=== PATIENT | female | born 1985 | race Caucasian/White ===

== ENCOUNTER 2023-11-13 03:16 | Observation (INO) | payer OTHER, SELFPAY ==
[2023-11-12 20:47] VITALS: BP 159/100
[2023-11-12 21:56] VITALS: BP 172/101
[2023-11-12 22:19] LABS: Hematocrit 35.3 % (37.0-47.0); Hemoglobin 12.6 g/dL (12.0-16.0); Mean Corp Hgb Conc. 35.7 g/dL (33.0-37.0); Mean Corpuscular Hgb 30.5 pg (27.0-31.0); Mean Corpuscular Volume 85.5 fL (81.0-99.0); Mean Platelet Volume 8.8 fL (7.4-10.4); Platelet Count 439 10^3/uL (130-400); Red Blood Cell Count 4.13 10^6/uL (4.20-5.40); Red Cell Dist. Width 13.7 % (11.5-14.5); White Blood Cell Count 12.6 10^3/uL (4.8-10.8)
[2023-11-12 22:20] LABS: Urine Albumin Trace (Neg - Trace); Urine Bilirubin 1+ (Negative); Urine Character Clear (Clear); Urine Color Yellow; Urine Glucose Negative (Negative); Urine Ketone 3+ (Negative); Urine Leukocyte Trace (Negative); Urine Nitrite Negative (Negative); Urine Occult Blood Negative (Negative); Urine Urobilinogen 1+ (Neg - 1+)
[2023-11-12 22:30] VITALS: BP 161/90
[2023-11-12 22:31] LABS: Blood Urea Nitrogen 14 mg/dl (7-17); Glucose 97 mg/dl (70-99)
[2023-11-12 22:32] LABS: ALT (SGPT) 26 U/L (0-35); AST (SGOT) 27 U/L (14-36); Albumin 3.6 g/dl (3.5-5.0); Alkaline Phosphatase 112 U/L (38-126); Calcium 9.2 mg/dl (8.4-10.2); Carbon Dioxide 23 mmol/L (22-30); Chloride 102 mmol/L (98-107); Potassium 3.7 mmol/L (3.5-5.1); Sodium 131 mmol/L (135-145); Total Bilirubin 0.7 mg/dl (0.2-1.3); Total Protein 6.8 g/dl (6.3-8.2); eGFR > 60.00
[2023-11-12 22:34] LABS: Urine Red Blood Cell None Seen /HPF (0-2); Urine Squamous Cell 0-2 /LPF (Few); Urine White Cell 0-2 /HPF (0-5)
[2023-11-12 23:00] VITALS: BP 154/91
[2023-11-12 23:30] VITALS: BP 175/103
--- NOTE | 2023-11-12 23:42 | ED.GENMED ---
History of Present Illness
General
Chief Complaint: Abdominal Symptoms
Source: patient and spouse
Exam Limitations: none
Time Seen by Provider: 11/12/23 22:24
Nursing documentation reviewed up to this point in time: agreed with
Travel History
Have you had any contact with someone who has COVID-19?: No
Do you have any symptoms of coronavirus? Fever > 100 degrees, chills, cough, shortness of breath, sore throat, loss of taste or smell, muscle aches, or headache?: No
History of Present Illness
History of Present Illness:
38-year-old female with past medical history of polysubstance use on chronic methadone who is currently reportedly 5 months (she says she has not yet had an ultrasound) presents to the emergency department for evaluation of nausea and
vomiting. Patient reports that she has chronic issues with nausea but during this it has been much worse. Over the past 5 days she has had significant worsening of her vomiting�she says she has been vomiting essentially all day and has
not been able to tolerate anything by mouth. She came to the emergency room because symptoms do not seem to be improving. She had previous prescription for Zofran for chronic nausea which she had been using but she says she is out of this medicine
and has nothing to take at home. She denies any significant abdominal pain�she says some slight epigastric discomfort but no lower abdominal pain. She denies any vaginal bleeding or discharge/leakage of fluids. No change in her bowel movements.
She says she has a very mild headache and has some mild dizziness. She has not noticed any fevers or chills. She denies any chest pain or shortness of breath. She has not had any other symptoms. She says that she initially saw her last on this
[facility] for this but never had an ultrasound she says; she says that she was working to transition her care over to [facility] but has not yet seen an OB there and does not have an appointment there for another 9 days.
Past History
Past History
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
ED Past Surgical History: Gynecological (D&C)
Social History
Tobacco: Smoker
Alcohol: None
Drug: Former user
Personal:
Living: with family
Employment: Not employed
Family History
Family History: Other (Noncontributory)
Review of Systems
Review of Systems
All Other Systems: ROS reviewed and negative except as documented in HPI and ROS
Constitutional: Denies fever or chills
EENT: Denies sore throat
Respiratory: Denies cough or trouble breathing
Cardiac: Denies chest pain or palpitations
ABD/GI: Reports abdominal pain, nausea and vomiting; Denies diarrhea or constipated
: Denies dysuria, frequency or flank pain
Musculoskeletal: Denies neck pain or back pain
Neurological: Denies headache, weakness or numbness
Phy Exam
Physical Exam
Physical Exam:
General: Awake, alert, oriented x3; vomiting into emesis bag
Head: Normocephalic, atraumatic
Eyes: Conjunctiva normal, EOMI, pupils equal round reactive to light bilateral
Throat: Airway intact, dry mucous membranes
Neck: Trachea midline, supple without meningismus
Lungs: Clear to auscultation bilaterally, no wheezing, rales, rhonchi
Heart: Tachycardia with regular rhythm, no murmurs, gallops, or rubs
Abd: Soft, appropriate size for gestational age, nontender
Neuro: No gross deficits
Skin: Patient has scabs and track shannon over upper and lower extremities but no signs of acute infection
Extremities: No edema in extremities, warm and well-perfused
Scores
Heart Failure Risk
Heart Failure Risk Score: Not Applicable
Heart Score for Chest Pain Patients
STEMI patient?: Not applicable
Withdrawal Assessment of Alcohol
Withdrawal Assessment Completed?: Not applicable
Course
Orders/Labs/Results
Orders:
Orders
05/01/24 22:10
Complete Blood Count/No Diff Urgent
Comprehensive Metabolic Panel Urgent
Protein/Creat Ratio (Random) Urgent
Date Specimen was Collected: 11/12/23
Time Specimen was Collected: 21:59
Comment: ADDED
Urinalysis Urgent
Date Specimen was Collected: 11/12/23
Time Specimen was Collected: 21:59
Urine Microscopic Urgent
Date Specimen was Collected: 11/12/23
Time Specimen was Collected: 21:59
11/12/23 23:37
Labetalol HCl [Trandate] 20 mg IV NOW STA
11/12/23 23:38
US 2nd/3rd Trimester Urgent
Comment:
Reason For Exam: abd pain,
11/12/23 23:39
0.9% Sodium Chloride 1000 ml [Nss] 1,000 ml IV BOLUS
Ondansetron Injectable [Zofran] 4 mg IV NOW STA
11/12/23 23:40
Electrocardiogram (*1) Urgent
Reason for Study: QTc Monitoring
EKG- Treatment ONCE
Urine Protein/Creat Ratio (Random) [Protein/Creat Ratio (Random)] Urgent
11/13/23 00:44
Add On- LAB Urgent
Tests Added?: urine protein/ creat ratio random
11/13/23 02:10
MRSA Screen Routine
TIMUR Source: Nose
Specimen Description:
11/13/23 05:00
Methadone HCl [Methadone 100 mg/10 ml] 120 mg PO DAILY@0500
11/13/23 08:00
dexmethylphenidate 20 mg PO DAILY
11/13/23 11:30
Methadone HCl [Methadone 100 mg/10 ml] 125 mg PO DAILY@1130
Abnormal Lab Results
11/12/23
22:10
WBC 12.6 H 10^3/uL
(4.8-10.8)
RBC 4.13 L 10^6/uL
(4.20-5.40)
Hct 35.3 L %
(37.0-47.0)
Plt Count 439 H 10^3/uL
(130-400)
Sodium 131 L mmol/L
(135-145)
Creatinine 0.4 L mg/dL
(0.6-1.0)
Urine Ketones 3+ A
(Negative)
Urine Bilirubin 1+ A
(Negative)
Ur Leukocyte Esterase Trace A
(Negative)
11/12/23 22:10
11/12/23 22:10
Vital Signs
Initial and Last Documented VS:
Initial Vital Signs
Temp Pulse Resp BP Pulse Ox
37.3 C 122 18 159/100 99
11/12/23 20:47 11/12/23 20:47 11/12/23 20:47 11/12/23 20:47 11/12/23 20:47
Last Documented Vital Signs
Temp Pulse Resp BP Pulse Ox
37.3 C 78 10 132/80 98
11/12/23 20:47 11/13/23 01:45 11/13/23 01:45 11/13/23 01:30 11/13/23 01:45
Procedures
IV Access
Indication: Emergent access required, RN unable to obtain and Physician skill needed
Performed by:: Davey Galindo MD
Site:: left forearm
Gauge:: 18
Ultrasound Guidance: Yes
MDM/Problems Addressed
Differential Diagnosis Includes:
Hyperemesis gravidarum, vertigo, gastritis, gastroenteritis, preeclampsia
MDM/Problems Addressed:
38-year-old female history as documented who is currently 5 months by dates presents to the emergency department with her spouse for evaluation of severe nausea and vomiting over the past few days and inability to tolerate p.o. She is
hypertensive here 159/100, tachycardic; otherwise normal vitals. Exam as above. Plan to place an IV check labs including CBC and CMP, urinalysis. Will treat symptomatically provide IV fluids. Will monitor closely specifically monitor blood
pressure and reassess after the above.
Initial labs reviewed: CBC shows slight leukocytosis of 12.6, CMP no clinically significant abnormalities. Urinalysis with trace protein. Clinical reassessment patient has remained hypertensive for about 2 hours here in the emergency room with a
peak blood pressure of 172/101. Concern with her complaints, consistent hypertension and proteinuria at reportedly 20 weeks that this could represent preeclampsia; discussed with SAFETY CONSULTANT as patient has not had ultrasound yet and dates somewhat
unclear will send for an OB ultrasound to both assess for wellbeing as well as to better clarify gestational age. Will send a urine protein creatinine ratio. Will treat with antihypertensive. Continue to monitor and reassess after the above.
Ultrasound shows estimated gestational age 21 weeks 6 days with heart rate 152. Patient feeling a bit better after Zofran and fluids. After IV labetalol 20 mg x 1 her blood pressure has improved now 132/80. SAFETY CONSULTANT at bedside to assess�will
admit to their service with consult to medicine for management of her methadone.
Chronic conditions affecting care:
*Radiology
Radiology exam reviewed: radiology read reviewed
*Pulse Oximetry
Patient hypoxic: no
*Critical Care Note
Total Time (30-74mins, 75-104mins- exclusive of procedures): Not Applicable
Data Reviewed
Source: patient and records
Patient Management
Discussion with other providers: [employer] (Discussed with SAFETY CONSULTANT)
Escalation/DeEscalation of care consider admission/obs:
Admission indicated
ED Attending Note
-
Portions of this chart may have been created with voice recognition software.� Occasional wrong word or��sound alike� substitutions may have occurred due to the inherent limitations of voice recognition software.
Discharge Plan
Departure
Patient Disposition: Admit
Date of Disposition: 11/13/23
Time of Disposition: 01:41
Admit to doctor: Braydon
Presentation/result/management discussed w/ accepting MD/DO: SAFETY CONSULTANT
Discharge Problem:
Hypertension, Hyperemesis gravidarum
Prescriptions:
No Action
methadone 10 mg/mL Concentrate
120 mg PO DAILY@0500
Patient Comments:
dose confirmation with [facility]
methadone 10 mg/mL Concentrate
125 mg PO DAILY@1130
Patient Comments:
dose confirmation with [facility]
dexmethylphenidate 10 mg Tablet
10 mg PO DAILY@1300
Patient Comments:
05/21/2023, patient filled this medication on 04/27/2023 for 30 tablets according to PDMP.
dexmethylphenidate 20 mg Capsule,Er Biphasic 50-50
20 mg PO DAILY
Patient Comments:
05/21/2023, patient filled this medication on 05/17/2023 for 30 capsules according to PDMP.
mupirocin 2 % Ointment
1 applic topical DAILY Qty: 22 1RF
tizanidine 2 mg Tablet
2 mg PO Q4HPRN PRN (Reason: restlessness,agitation,anxiety) Qty: 20 0RF
clonidine HCl 0.1 mg tablet
0.1 mg PO BID Qty: 10 0RF
ondansetron HCl 4 mg tablet
4 mg PO Q8H PRN (Reason: nausea and vomiting) 4 Days Qty: 10 0RF
doxycycline monohydrate 100 mg capsule
100 mg PO BID Qty: 20 0RF
Referrals:
Arline Maki MD [Family Provider] -
Interventions
Interventions:
*Risk Screen - Suicide Last Done: 11/12/23 22:34
*General Assessment Last Done: 11/12/23 20:47
*Neglect/Abuse Screening Last Done: 11/12/23 22:34
*ED COVID-19 Vaccine History Last Done: 11/12/23 22:34
Discharge Date and Time
Print Language: [place]
[2023-11-12] MEDS: ZOFRAN 4 MG IV (23:49)
[2023-11-12] MEDS: NSS 1000 IV (23:49)
[2023-11-12] MEDS: TRANDATE 20 MG IV (23:49)
[2023-11-13] VITALS (7 sets, daily range): BP systolic 121–148; BP diastolic 64–91; BMI 31.1; BMI 30.5
[2023-11-13 01:24] LABS: Protein/creatinine Ratio 0.1; Urine Protein 16 mg/dl
--- NOTE | 2023-11-13 02:41 | HPS.HSE ---
Family Physician
-
Family Physician: Arline Maki MD
Chief Complaint
-
nausea/vomiting
History of Present Illness
38yo at 20+4wks by LMP (06/22/23) presents to the ER late last night with n/v. She has had n/v this whole and reports she ran out of zofran. Usually sx are controlled by zofran at home, but was not able to get a refill on her med
because she is in the process of switching OB care from [facility] to . Cannot keep anything down for the past several days at home. No sick contacts. No abdominal pain. No diarrhea/constipation.
She has a significant h/o IV drug use, quit about 3 months ago, and was not able to keep down her methadone yesterday afternoon. She has been feeling lately like she needs an increased dose of methadone in the morning. Feels jittery and not well in
the morning due to apparent withdraw sx. Feeling that way now, as well. Overall, the n/v has improved after receiving one dose of IV Zofran in the ER. She has not been able to receive much by way of IV fluids because her IV sites have blown
(difficult vein access due to h/o drug use).
In the ER, noted to have several elevated BPs on presentation, a few in the severe range (175/103 at 2330). Received a single dose of IV Labetalol 20mg, BPs now in the 130s/80s. Denies h/o HTN outside of or in this . Denies HTN or
pre-eclampsia in previous . Denies LARSON, visual sx, or RUQ pain. Denies CP, palpitations or SOB.
has otherwise going well for her, despite the n/v. Denies ctxs, lof or VB. No other complaints.
Medical History
Past Medical History
Past Medical History: Reports Other
Additional Past Medical History:
h/o IV drug use, h/o MRSA infection (hospitalized in ) , ADHD
Past Surgical History: Reports Other
Additional Past Surgical History:
D&E
Social History
Tobacco: Smoker
Alcohol: None
Drug: Former User
Personal:
Living: With Family
Family History
Family History: Hypertension (mother)
Allergies / Home Medications
Allergies reflects when Allergies were last updated in [employer].
Sulfa
Home Medications with original date entered in [employer]
methadone 10 mg/mL oral concentrate 120 mg PO DAILY@0500 opioid use disorder 05/21/22
methadone 10 mg/mL oral concentrate 135 mg PO DAILY@1130 opioid use disorder 05/21/22
dexmethylphenidate 10 mg tablet 10 mg PO DAILY@1300 Neurological Condition 05/21/23
dexmethylphenidate 20 mg capsule,extended release [id number] 20 mg PO DAILY Neurological Condition 05/21/23
mupirocin 2 % topical ointment 1 applic topical DAILY #22 grams 05/25/23
ondansetron HCl 4 mg tablet 4 mg PO Q8H PRN nausea and vomiting 4 days #10 tabs 05/25/23
tizanidine 2 mg tablet 2 mg PO Q4HPRN PRN restlessness,agitation,anxiety #20 tabs 05/25/23
Allergy/Medication List:
methadone 10 mg/mL oral concentrate 120 mg PO DAILY@0500 opioid use disorder 05/21/22
methadone 10 mg/mL oral concentrate 135 mg PO DAILY@1130 opioid use disorder 05/21/22
dexmethylphenidate 20 mg capsule,extended release [id number] 20 mg PO DAILY Neurological Condition 05/21/23
mupirocin 2 % topical ointment 1 applic topical DAILY #22 grams 05/25/23
ondansetron HCl 4 mg tablet 4 mg PO Q8H PRN nausea and vomiting 4 days #10 tabs 05/25/23
Review of Systems
-
History Source: Patient
A 12 point ROS was completed and negative except as noted: Yes
Constitutional: Reports Other (feels jittery)
EENT: Reports No Symptoms
Respiratory: Reports No Symptoms
Cardiac: Reports No Symptoms
Abdomen/GI: Reports Nausea (since beginning of , worse this week) and Vomiting (since beginning of , worse this week)
: Reports No Symptoms
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
Neurological: Reports No Symptoms (Denies LARSON or visual sx)
Endocrine: Reports No Symptoms
Hematologic/Lymphatic: Reports No Symptoms
Psych: Reports Anxiety (feels jittery when methadone starts to wear off, currently feeling this way)
Physical Exam
Vital Signs
Vital Signs
Temp Pulse Resp BP Pulse Ox
99.2 F 78 10 132/80 98
11/12/23 20:47 11/13/23 01:45 11/13/23 01:45 11/13/23 01:30 11/13/23 01:45
Initial BPs in the ER 154-175/90-103-- since receiving the IV Labetalol 20mg x1, BPs 130s/80s
Physical Exam
General: Conversant
HEENT: NormoCephalic
Respiratory: Clear and Non Labored Respirations
Cardiac: S1/S2 and Regular Rhythm
Breast: Deferred by me
GI: Soft, Non Tender, Non Distended and Other (gravid, fundus at U+2cm)
Rectal: Deferred by Provider
Genito-urinary: Deferred by me
Musculoskeletal: No Clubbing, No Cyanosis and No Edema
Skin: Ulcers (chronic necrotic appearing ulcerations at injection sites all over body, no active oozing noted) and Lesions
Neuro: AO x 3, No Motor Deficits, Nonfocal/grossly intact and DTR's Intact & Symmetrical (+2 b/l LE)
Psych: Agitated (slightly agitated/anxious, but cooperative)
Laboratory Results
-
11/12/23 22:10
11/12/23 22:10
Laboratory Results
Total Bilirubin 0.7 mg/dl (0.2-1.3) 11/12/23 22:10
AST 27 U/L (14-36) 11/12/23 22:10
ALT 26 U/L (0-35) 11/12/23 22:10
Alkaline Phosphatase 112 U/L (38-126) 11/12/23 22:10
urine pr:creatinine ration 0.1
Data Reviewed
-
Critical Care Time (in minutes): 60
Ultrasound: Report Reviewed by me (No final report available yet. Prelim report reviewed- OB US: EFW 432gm, 91st percentile c/w 21+6wks, FHR 152), Discussed with Physician and Discussed with Patient
Lab Data: Labs Reviewed by me, Discussed with Physician and Discussed with Patient
Impression/Plan
-
IMPRESSION/PLAN: 38yo at 20+4wks by ?LMP (06/22/23) with:
1) N/v of : exacerbated after running out of Zofran at home this past week. Feeling better in the ER after 1 IV dose of Zofran. Sodium slightly low, but otherwise no electrolyte abnormalities
-ER staff attempting to establish better IV site (difficult due to extensive drug use in the past)-- will then start 1/2 NS at 125ml/hr until tolerating adequate PO
-Reg diet as tolerated, encouraged pt to go slow
-Zofran ODT prn
-Reglan IV prn (can try LA Phenergan if Zofran alone is not providing relief and IV access is not well-established)
2) New HTN in pre-viable , some BPs initially in the severe range: No sx of pre-eclampsia. Pre-e labs wnl. BPs normal after 1 dose of IV Labetalol.
Unsure if pt withdraw sx or active vomiting in the ER contributing to this episode of HTN.
-Do not feel we need to start magnesium infusion at this time.
-Will monitor closely (for approx 24hrs, longer if necessary) and discuss next steps with MFM if pt continues to have spikes in BPs. Patient will need MFM consult regardless, as this is a high risk for multiple reasons.
-consider repeating labs in 12-24hrs if BPs remain elevated
3) Necrotic ulcerations at injection sites/h/o Pseudomonas and MRSA
-Hospitalist consulted. Do not feel systemic abx are needed at this time.
-MRSA swab sent by ER team
4) Ho IV drug use, on Methadone. Sx of acute withdraw.
-Hospitalist managing methadone. Pt given AM dose of Methadone early this morning to help manage withdraw. Pt feels lately that she may need increased Methadone AM dose to help her manage her symptoms-- defer to hospitalist and/or pt's Methadone
clinic.
-Will consider Clonodine (cat C in ) if needed for withdraw sx.
5) High-risk , c/b h/o IV drug use, tobacco dependence, n/v of , AMA, lapse in care, ?Uncertain dates (cannot find US results from earlier in . EGA 20+4wks based on reported LMP, 21+6wks based on today's US,
Fundal height c/w 22wks)
-Pt has NOB appt scheduled with Fadi Orantes (saw [facility] for just 1 visit early in )
-Will need an MFM consult placed-- out-patient vs. in-patient, depending on how she is doing
-will speak to [facility] physician in the morning to see if they can locate this US to confirm dates
Very much appreciate hospitalist assistance in managing this patient.
Roxann Bryson, DO
--- NOTE | 2023-11-13 03:05 | CON.HOSP ---
Family Physician
-
Family Physician: Arline Maki MD
Chief Complaint
-
nausea/vomiting
History of Present Illness
Ms. Tiffanie Olson is a 38 yo woman with hx IVDA on chronic methadone, admission 06/05 for cellulitis/infection /abscesses at injection sites with wounds showing MRSA/Pseudomonas treated with IV Vanc/Cefepime and discharged on doxycycline presents
to the ER with nausea/vomiting in setting of being 4-5 months . Patient states she wasn't able to keep her methadone pills down yesterday. She was hypertensive in the ER and therefore admitted to OB service for further monitoring for
preeclampsia.
Medicine is asked to consult for management of methadone and skin lesions. Patient has diffuse Xylazine - induced skin markings which appear healed and scarred b/l upper extremities but remain necrotic with mild surrounding erythema in some
locations lower extremities. Patient states overall the appearance is improving. She does topical skin care with cleansing and antibiotic ointment at home. No exudate as was noticed prior.
No fevers/chills. No chest pain or shortness of breath. No tremors. She is currently feeling better after interventions in the ER. She vomited both methadone doses from yesterday. No swelling.
Medical History
Past Medical History
Past Medical History: Reports Other (IVDA on chronic methadone, admission 06/05 for cellulitis/infection /abscesses at injection sites with wounds showing MRSA/Pseudomonas)
Past Surgical History: Reports Other
Social History
Tobacco: Smoker
Alcohol: None
Drug: Former User
Allergies / Home Medications
Allergies reflects when Allergies were last updated in [employer].
Home Medications with original date entered in [employer]
Allergy/Medication List:
Allergies
Allergy/AdvReac Type Severity Reaction Status Date / Time
Sulfa (Sulfonamide Allergy Anaphylaxis Verified 05/21/23 16:08
Antibiotics)
Home Medications
methadone 10 mg/mL oral concentrate 120 mg PO DAILY@0500 opioid use disorder 05/21/22
methadone 10 mg/mL oral concentrate 135 mg PO DAILY@1130 opioid use disorder 05/21/22
dexmethylphenidate 10 mg tablet 10 mg PO DAILY@1300 Neurological Condition 05/21/23
dexmethylphenidate 20 mg capsule,extended release [id number] 20 mg PO DAILY Neurological Condition 05/21/23
mupirocin 2 % topical ointment 1 applic topical DAILY #22 grams 05/25/23
ondansetron HCl 4 mg tablet 4 mg PO Q8H PRN nausea and vomiting 4 days #10 tabs 05/25/23
tizanidine 2 mg tablet 2 mg PO Q4HPRN PRN restlessness,agitation,anxiety #20 tabs 05/25/23
Review of Systems
-
History Source: Patient
A 12 point Review of Systems was completed except as noted: Yes
Physical Exam
Vital Signs
Vital Signs
Temp Pulse Resp BP Pulse Ox
99.2 F 73 15 134/76 97
11/12/23 20:47 11/13/23 02:45 11/13/23 02:45 11/13/23 02:00 11/13/23 02:45
Physical Exam
General: No Apparent Distress
HEENT: PERRLA
Respiratory: Clear; Negative Wheezes
Cardiac: S1/S2 and Regular Rhythm
GI: Other ( abdomen)
Musculoskeletal: No Edema
Skin: Other (b/l upper extremities with diffuse scarring from skin excoriations; lower extremities with diffuse necrotic appearing ulcers; some with surrounding erythema, no exudate)
Neuro: AO x 3
Psych: Calm
Laboratory Results
-
Laboratory Results
11/12/23 22:10
11/12/23 22:10
Total Bilirubin 0.7 mg/dl (0.2-1.3) 11/12/23 22:10
AST 27 U/L (14-36) 11/12/23 22:10
ALT 26 U/L (0-35) 11/12/23 22:10
Alkaline Phosphatase 112 U/L (38-126) 11/12/23 22:10
Data Reviewed
-
Diagnostic Radiology: Report Reviewed by Me
Lab Data: Labs Reviewed
Impression / Plan
-
Ms. Tiffanie Olson is a 38 yo woman with hx IVDA on chronic methadone, admission 06/05 for cellulitis/infection /abscesses at injection sites with wounds showing MRSA/Pseudomonas treated with IV Vanc/Cefepime and discharged on doxycycline presents
to the ER with nausea/vomiting in setting of being 4-5 months .
Medicine is asked to consult for management of methadone and skin lesions. Lower extremity skin lesions appear necrotic but not actively infected.
Nausea/Vomiting in
Hypertension in
-received Labetalol in ER with improvement
-patient is admitted to OB service
-plan per OB
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
-per patient report, these are chronic appearing since May and slowly improving
-I do not see need for systemic antibiotics at this time
-will consult wound care
Hx IVDA on Methadone
-patient's Methadone is resumed at RADIOGRAPHY TECHNICIAN dosing
-can consider clonidine which will also help BP if OK with OB
[2023-11-13] MEDS: DOLOPHINE 120 MG PO (03:31)
[2023-11-13] MEDS: 0.45%NACL 1000 IV ×2 (04:27→13:22)
--- NOTE | 2023-11-13 05:13 | PTCARENOTE ---
LDRP called for Doppler heart tone test every 24 hr
--- NOTE | 2023-11-13 07:26 | PTCARENOTE ---
doppler heart tones 135-140's
[2023-11-13] MEDS: ZOFRAN ODT (ORALLY DISINTEGRATING) 4 MG PO ×2 (08:02→16:02)
--- NOTE | 2023-11-13 11:20 | PTCARENOTE ---
pt taken via wheelchair to US at 1040 this AM. pt to be off the floor for 1.5 hrs per Deanna who took pt down. UA still outstanding. this nurse placed hat in toilet and pt is aware we need a sample. IVF going at 125mL/hr. pt given prn oral
zofran this AM for nausea prior to breakfast. pt is a self within the room and 21 weeks .
[2023-11-13] MEDS: METHADONE 100 MG/10 ML 125 MG PO (11:56)
--- NOTE | 2023-11-13 12:45 | WOUNDNOTE ---
L ANKLE/CALF (MEDIAL)
--- NOTE | 2023-11-13 12:45 | WOUNDNOTE ---
R HIP/BUTTOCKS (OUTER)
--- NOTE | 2023-11-13 12:46 | WOUNDNOTE ---
[facility] RN note: Patient admitted with elevated bp, nausea/vomiting. Patient 20weeks . She is .
See H&P for complete history.
PMH: IV drug use quit last May, ADHD, smoker, on Methadone, chronic wounds slowly improving (history of pseudomonas and MRSA, 05/2023 cellulitis/infection, abscess.
Wound Location and type/assessment: Patient admitted with: multiple full thickness to subcutaneous layer or deeper IV drug and skin popping wounds in different stages of wound healing. Some dry eschars, some dry pink, some with yellow slough.
Patient cleanses wounds at home with Hibiclens in the shower; she stated she did confirm with her building construction contractor. She has been covering the open draining wounds with silicone border foam or Band-aids. R lateral thigh blister noted with redness and
tenderness suspect is a developing abscess.
Appetite: good.
Pressure redistribution devices in place: [employer] Accumax. Patient is mobile.
Plan: Open/draining wounds cleansed with saline, and redresses. Agra texted Dr. Precious Bryson re: multiple drug related wounds, area of concern R lateral thigh red tender area, picture included. Asked about warm compresses R lateral thigh area
of concern and local wound care. Await response.
Care plan to be updated and will follow as needed. Suggested to patient she follow up at [facility].
[2023-11-13 13:07] LABS: Protein/creatinine Ratio 0.1; Urine Protein 12 mg/dl
--- NOTE | 2023-11-13 13:46 | W.PN.OBG.DWH ---
Today's Communication / Plan
-
Transfer to [facility] for higher level care due to severe prematurity
Assessment/Plan
-
at 22+ weeks, EFW over 500 g with no care, h/o IVDA/Methadone, and severe range BP-stable. Transfer to [facility] initiated, accepted. Consent signed by patient.
Subjective Data
-
Pt feeling better, taking house diet. denies bleeding, abdominal pain. Had Level 2 U/S earlier-reviewed recommendation of [facility] that pt be transferred to tertiary care as EFW 522 g and dating is in question, therefore, need to presume baby could be
viable, and if pt experience were to experience further sever hypertension, would be at risk for complications that could necessitate delivery. Pt agrees with plan.
Denies any recent drug use. Has appointment to begin care at [facility] in the next week.
Medicine managing wound carer
Objective Data
-
Laboratory Results
11/12/23 22:10
11/12/23 22:10
Vital Signs
Temp Pulse Resp BP Pulse Ox
98.4 F 67 17 126/70 97
11/13/23 07:50 11/13/23 07:50 11/13/23 07:50 11/13/23 07:50 11/13/23 09:20
Abdomen-soft, gravid/nontender, fundus firm and nontender at 2 cm above umbilicus
Extremities-no calf pain, multiple scabs
[2023-11-13 13:55] LABS: Amphetamines Negative (Negative); Barbiturates Negative (Negative); Benzodiazepines Negative (Negative); Buprenorphine Negative (Negative); Cocaine Negative (Negative); Marijuana Negative (Negative); Methadone Positive (Negative); Methamphetamines Negative (Negative); Opiates Negative (Negative); Phencyclidine Negative (Negative); Tricyclic Antidepressants Negative (Negative)
[2023-11-13 14:19] LABS: Fentanyl, Urine Positive (Negative)
[2023-11-13 14:29] LABS: Hepatitis B Surface Antigen Negative (Negative)
--- NOTE | 2023-11-13 14:34 | WOUNDNOTE ---
Forwarded grover text sent to Dr. Bryson to Dr. Crump who saw patient today. Patient is being transferred to [facility] when bed available. Dr. Crump deferred wound care orders to hospitalist. Grover texted Dr. Vega who plans to see
patient. Dr. Vega approved local wound care and warm compresses to R lateral thigh. Updated discharge instructions.
--- NOTE | 2023-11-13 14:34 | CM ---
Reviewed the chart notes and spoke with the patient at the bedside. The patient is admitted under observational status. Observational letter was provided and explained. The patient had no questions with regards to the letter.
The patient resides with her spouse in a two story home with six steps to enter. The patient reports no DME/VN/SNF in the past. The patient confirmed her pharmacy of choice is the [facility]. continues to be available to
patient/family and is monitoring medical plan for needs at discharge.
Plan: Transfer to [facility]/[place] via ambulance.
[2023-11-13 14:39] LABS: HIV Combo Negative (Negative)
[2023-11-13 14:46] LABS: Hepatitis B Surface Antibody Positive; Hepatitis C Antibody Reactive (Negative)
--- NOTE | 2023-11-13 15:57 | PHA.VAN.IN ---
Assessment
- Assessment
Renal Function: Appears similar to baseline
Concomitant Antimicrobials: piperacillin/tazobactam
- Previous Dosing Experience
Previous Regimen: Vanc 750mg Q8H
Date of Regimen: May 2023
Provided Trough of: 13.4
Provided AUC of: 444
Patient's SCR is: Similar to previous dosing experience
Patient's weight is: Similar to previous dosing experience
Regimen provided the following patient-specific PK:
Extrapolated Cmax (mcg/mL): 24.2 (Peak level was drawn: Appropriately)
Extrapolated Cmin (mcg/mL): 13.6 (Trough Drawn: Appropriately)
Levels were drawn: At steady state
Calculated AUC (mcg*h/mL): 444
Calculated ke: 0.0965
Calculated half life (H): 7.2
Calculated Vd (L): 52.39
Calculated Vanc CL (ml/min): 84.22
Patient had IV VIANEY with prior dosing experience but is currently
AUC Dosing Plan
- Dosing Variables
Dosing Weight (kg): 78
Dosing CrCl (ml/min): 123
Vd coefficient (L/kg): 0.7
Due to and history of IV VIANEY, patient unlikely to follow population PK and may require increased dosing
can increase volume of distribution and renal blood flow (Pharmacotherapy 2015;35(11):1052�1062)
Patients with IV VIANEY frequently have concentrations below guideline-based targets (Open Forum Infectious Diseases, Volume 4, Issue suppl_1, Fall 2017, Page J172)
- Empiric Dosing
Initial / Loading Dose: 1250mg - administration pending
Maintenance Regimen: Van 750mg Q8H starting at 2200 in lieu of full loading dose
Estimated AUC (mcg*h/mL): 408
Estimated Peak (mcg*h/mL): 24
Estimated Trough (mcg/ml): 11.4
Estimated Half Life (H): 6.5
Will initiate same dosing as prior experience - patient may require dose adjustments due since prior dosing experience but will follow levels first
- Monitoring
No levels ordered at this time: will consider levels in next 48 hours
Pharmacokinetics Vancomycin I
- -
Patient Age: 38
Patient Sex: Female
Vancomycin Day #: 1
Indication: Skin And Soft Tissue
Requesting Provider: Dr. Vega
Pertinent Antimicrobial Allergies:
sulfonamide antibiotics - anaphylaxis
Height / Weight:
Height 5 ft 3 in
Actual Weight 78.188 kg
Pertinent Past Medical History: BMI ~30.5, IV VIANEY
- Vital Signs / Lab Results
Temp Pulse Resp BP Pulse Ox
97.9 F 64 17 121/64 98
11/13/23 15:41 11/13/23 15:41 11/13/23 15:41 11/13/23 15:41 11/13/23 15:41
Lab Results - Hematology
11/12/23
22:10
WBC 12.6 H
Lab Results - Chemistry
11/12/23
22:10
BUN 14
Creatinine 0.4 L
Albumin 3.6
Lab Results - Urine
11/12/23
22:10
Urine Nitrite Negative
Ur Leukocyte Esterase Trace A
Urine WBC 0-2
Ur Squamous Epith Cells 0-2
[2023-11-13] MEDS: ZOSYN 50 IV (16:02)
[2023-11-13] MEDS: VANCOCIN 275 MG IV (16:32)
--- NOTE | 2023-11-13 16:46 | W.PN.HOSP.TC ---
Today's Communication/Plan
-
Pending transfer.
Assessment / Plan
Assessment / Plan
Impression/plan:
Presented with nausea and vomiting in
Improved with addition of antiemetics/Zofran.
Hypertension upon admission.
No prior history of hypertension including hypertensive .
? If component of withdrawal while patient was not able to ingest her methadone.
Treated with single dose of labetalol and currently normotensive.
No clinical or laboratory evidence of preeclampsia.
Plan is for further maternal monitoring at the tertiary care center pending transfer.
IVDA with chronic opiate use disorder on methadone
Xylazine induced skin ulcerations with necrosis
Wound care appreciated
Right thigh necrotic wound with erythema and induration/surrounding cellulitis
No fluctuance on exam.
Prior history of MRSA and pseudomonal.
Will start vancomycin and Zosyn.
Site needs to be monitored closely for further development as patient may require surgical debridement
Anticipated Discharge: Within 24 hours
Subjective/Interval History
-
Date of Service: November 13, 2023
Objective Data
-
Vital Signs:
Vital Signs
Temp Pulse Resp BP Pulse Ox
97.9 F 64 17 121/64 98
11/13/23 15:41 11/13/23 15:41 11/13/23 15:41 11/13/23 15:41 11/13/23 15:41
I&O
11/12/23 11/13/23 11/14/23
06:59 06:59 06:59
Intake Total 1175 / 1175
Balance 1175 / 1175
Physical Exam
-
General: Well Developed and No Apparent Distress
HEENT: Normocephalic, Atraumatic and Moist Mucous Membranes
Respiratory: Clear to Auscultation
Cardiac: Regular Rhythm and S1/S2; Negative Murmur, Rub or Gallop
GI: Soft, Nontender, Nondistended and Normal Bowel Sounds; Negative Organomegaly
Rectal: Deferred by Provider
Musculoskeletal: No Clubbing, No Cyanosis and No Edema
Skin: Negative Rash
Neuro: Nonfocal/Grossly Intact
--- NOTE | 2023-11-13 18:03 | PTCARENOTE ---
report called by this nurse to [employer] labor and delivery at [phone]. pt taken via stretcher to hospital, vitals taken within 4 hour discharge window and Iv site was removed prior to discharge. pt ate dinner and received two PO doses of oral
disintegrating zofran this afternoon. last dose reported to [facility] nurse during report. pt belongings gathered and sent with patient at time of discharge.
[2023-11-13 20:11] LABS: Rubella Positive
[2023-11-14 14:41] LABS: Syphilis/T. pallidum Ab Reflex Negative (Negative)
== END 2023-11-13 17:41 | disposition short-term general hospital (02) ==
LOC: 2 NORTH 03:16
PROVIDERS: Obstetrics & Gynecology; ADMITTING PHYSICIAN Obstetrics & Gynecology; EMERGENCY PHYSICIAN Emergency Medicine; OTHER PHYSICIAN Student in an Organized Health Care Education/Training Program
DX: O21.0 Mild hyperemesis gravidarum (principal); R10.9 Unspecified abdominal pain; F11.20 Opioid dependence, uncomplicated; F17.200 Nicotine dependence, unspecified, uncomplicated; O99.332 Smoking (tobacco) complicating pregnancy, second trimester; O13.2 Gestational [pregnancy-induced] hypertension without significant proteinuria, second trimester; Z3A.21 21 weeks gestation of pregnancy; F90.9 Attention-deficit hyperactivity disorder, unspecified type; O24.112 Pre-existing type 2 diabetes mellitus, in pregnancy, second trimester; O99.342 Other mental disorders complicating pregnancy, second trimester; O99.322 Drug use complicating pregnancy, second trimester; L97.118 Non-pressure chronic ulcer of right thigh with other specified severity; L03.115 Cellulitis of right lower limb; K29.70 Gastritis, unspecified, without bleeding; R42 Dizziness and giddiness; R51.9 Headache, unspecified; O99.612 Diseases of the digestive system complicating pregnancy, second trimester; Z88.2 Allergy status to sulfonamides; Z86.14 Personal history of Methicillin resistant Staphylococcus aureus infection
CPT/HCPCS: 76805; 76811; 80053; 80306; 80307; 81003; 81015; 82570; 84156; 85027; 86706; 86762; 86780; 86803; 86850; 86900; 86901; 87070; 87086; 87340; 87389; 93005; 96361; 96374; 96375; 99285; G0378

== ENCOUNTER 2023-12-23 20:50 | Emergency (ER) | payer OTHER, SELFPAY ==
[2023-12-23 20:57] VITALS: BP 142/98
[2023-12-23 21:57] VITALS: BP 148/90
[2023-12-23] MEDS: ZOFRAN 4 MG IV (22:33)
--- NOTE | 2023-12-23 22:35 | ED.GENMED ---
History of Present Illness
<ANGELO Brown - Last Filed: 12/24/23 04:12>
General
Chief Complaint: Problems
Source: patient and records
Exam Limitations: none
Time Seen by Provider: 12/23/23 21:57
Travel History
Have you had any contact with someone who has COVID-19?: No
Do you have any symptoms of coronavirus? Fever > 100 degrees, chills, cough, shortness of breath, sore throat, loss of taste or smell, muscle aches, or headache?: No
History of Present Illness
History of Present Illness:
38 year old female at 28 weeks gestation A4 with hx of polysubstance abuse on methadone who presents with 2 days of nausea and vomiting. Pt was seen here on 11/12/23 for similar symptoms. at the time she was found to have xylazine induced skin
ulceration with necrosis. Pt was admitted and transferred to [facility] for higher level care due to severe prematurity. She was found to be hypertensive and BP controlled with a dose of labetalol. Today she presents with 2 days of cyclic vomiting.
She took Zofran 4 mg PO today at 1500 without relief of her symptoms. She reports burning epigastric abdominal pain, which she states is due to the constant vomiting. Additionally, she reports high blood pressure today at home at 157/99. She reports
mild head ache. Denies dizziness, vision changes, diarrhea, constipation, fevers/chills, cough, chest pain, SOB. Denies vaginal bleeding or discharge. Reports positive movement. She is followed by OB in [place], last appointment 3 weeks ago
with normal check up. She last used fentanyl via IVDU 1 week ago. Denies other drug use, tobacco or etoh use.
Past History
<ANGELO Brown - Last Filed: 12/24/23 04:12>
Past History
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
ED Past Surgical History: Gynecological (D&C)
Social History
Tobacco: Smoker
Alcohol: None
Drug: Former user
Personal:
Living: with family
Employment: Not employed
Family History
Family History: Other (Noncontributory)
Review of Systems
<Danielcolby Olson [facility] - Last Filed: 12/24/23 04:12>
Review of Systems
Allergies reviewed?: Yes
All Other Systems: ROS reviewed and negative except as documented in HPI and ROS
Constitutional: Reports no symptoms
EENT: Reports no symptoms
Respiratory: Reports no symptoms
Cardiac: Reports no symptoms
ABD/GI: Reports abdominal pain, nausea and vomiting
: Reports no symptoms
Musculoskeletal: Reports no symptoms
Skin: Reports no symptoms
Neurological: Reports no symptoms
Endocrine: Reports no symptoms
Hematologic/Lymphatic: Reports no symptoms
Psychiatric: Reports no symptoms
Phy Exam
<Ama Olson [facility] - Last Filed: 12/24/23 04:12>
General Physical Exam
General Presentation: no apparent distress and other (weak-appearing)
General age: appears stated age
General Skin: warm and dry
General Habitus: normal
General Mental: alert
General Hydration: dry mucous membranes
Cardiovascular Exam
Cardiovascular Exam: regular rate/rhythm, no edema, no gallop, no murmur and normal peripheral pulses
Pulmonary Exam
Pulmonary Exam: lungs clear, no respiratory distress, no rales, no crackles, no rhonchi, no wheezing and no cough
Gastrointestinal Exam
Gastrointestinal Exam: normal bowel sounds, non tender and other (gravid)
Neurological Exam
Neurological Exam: alert, oriented x3, CN II-XII intact, no motor deficits and no sensory deficits
Skin Exam
Skin Exam: normal color, warm/dry and other (multiple scars due to IVDU to the anterior aspect of bilateral upper extremities. No open lesions with active bleeding or discharge. )
Psychiatric Exam
Psychiatric Exam: normal mood/affect
Course
<ANGELO Brown - Last Filed: 12/24/23 04:12>
Orders/Labs/Results
Orders:
Orders
12/23/23 22:09
0.9% Sodium Chloride 1000 ml [Nss] 1,000 ml IV BOLUS
Ondansetron Injectable [Zofran] 4 mg IV NOW STA
12/23/23 22:38
Comprehensive Metabolic Panel Urgent
Magnesium Urgent
12/23/23 22:39
Beta HCG Quantitative Urgent
Is this a screen?: No
Comment: 28 weeks per pt
Complete Blood Count/With Diff Urgent
12/23/23 22:43
Drug Screen, Urine [Urine Drug Abuse Screen] Urgent
Date Specimen was Collected: 12/24/23
Time Specimen was Collected: 00:38
Urinalysis Reflex To Culture Urgent
Date Specimen was Collected: 12/24/23
Time Specimen was Collected: 00:38
12/23/23 23:09
Pantoprazole [Protonix IV] 40 mg IV NOW STA
12/23/23 23:39
0.9% Sodium Chloride 500 ml [Nss] 500 ml IV BOLUS
12/24/23 00:39
Fentanyl, Urine Urgent
Urine Microscopic Reflex Cult Urgent
Urine Culture Urgent
TIMUR Source: U
Specimen Description:
Date Specimen was Collected: 12/24/23
Time Specimen was Collected: 00:38
12/24/23 02:00
Dextrose 5%/0.9%Sodchl 500 ml [D5/0.9% Sodium Chloride] 500 ml IV 150 mls/hr
12/24/23 02:50
Prochlorperazine [Compazine] 10 mg IV NOW STA
12/24/23 02:51
Prochlorperazine [Compazine] 10 mg .ROUTE .STK-MED ONE
12/24/23 04:45
Urinalysis Reflex To Culture Urgent
Date Specimen was Collected: 12/24/23
Time Specimen was Collected: 04:44
Urine Microscopic Reflex Cult Urgent
Urine Culture Urgent
TIMUR Source: U
Specimen Description:
Date Specimen was Collected: 12/24/23
Time Specimen was Collected: 04:44
12/24/23 05:39
Cephalexin Monohydrate [Keflex] 500 mg PO NOW STA
Abnormal Lab Results
12/23/23 12/23/23 12/24/23
22:38 22:39 00:39
WBC 15.8 H 10^3/uL
(4.8-10.8)
Hct 35.5 L %
(37.0-47.0)
Plt Count 614 H 10^3/uL
(130-400)
Abs Immat Gran (auto) 0.1 H 10^3/uL
(0-0.05)
Absolute Neuts (auto) 12.9 H 10^3/uL
(1.4-6.5)
Absolute Monos (auto) 0.8 H 10^3/uL
(0.1-0.6)
Neutrophils % 81.6 H %
(42.2-75.2)
Lymphocytes % 13.0 L %
(20.5-51.1)
Sodium 131 L mmol/L
(135-145)
Chloride 88 L mmol/L
(98-107)
Carbon Dioxide 33 H mmol/L
(22-30)
BUN 19 H mg/dl
(7-17)
Creatinine 0.5 L mg/dL
(0.6-1.0)
Alkaline Phosphatase 152 H U/L
(38-126)
Urine Ketones 3+ A
(Negative)
Urine Bilirubin 1+ A
(Negative)
Urine Urobilinogen 2+ A
(Neg - 1+)
Leukocyte Esterase Rfl Trace A
(Negative)
Urine WBC (Reflex) 11-15 A /HPF
(0-5)
Urine Bacteria (Reflex) Many A
(Negative)
Urine Methadone Screen Positive H
(Negative)
Urine Fentanyl Screen Positive H
(Negative)
12/24/23
04:45
WBC
Hct
Plt Count
Abs Immat Gran (auto)
Absolute Neuts (auto)
Absolute Monos (auto)
Neutrophils %
Lymphocytes %
Sodium
Chloride
Carbon Dioxide
BUN
Creatinine
Alkaline Phosphatase
Urine Ketones 3+ A
(Negative)
Urine Bilirubin 2+ A
(Negative)
Urine Urobilinogen 2+ A
(Neg - 1+)
Leukocyte Esterase Rfl Trace A
(Negative)
Urine WBC (Reflex) 11-15 A /HPF
(0-5)
Urine Bacteria (Reflex) Many A
(Negative)
Urine Methadone Screen
Urine Fentanyl Screen
12/23/23 22:39
12/23/23 22:38
Vital Signs
Initial and Last Documented VS:
Initial Vital Signs
Temp Pulse Resp BP Pulse Ox
97.9 F 108 18 142/98 96
12/23/23 20:57 12/23/23 20:57 12/23/23 20:57 12/23/23 20:57 12/23/23 20:57
Last Documented Vital Signs
Temp Pulse Resp BP Pulse Ox
97.9 F 84 18 155/92 98
12/23/23 20:57 12/24/23 06:05 12/24/23 06:05 12/24/23 05:48 12/24/23 06:05
Information
Weeks gestation: Weeks: (28)
Location: N/A
<Payam Greenberg MD - Last Filed: 12/26/23 19:07>
Orders/Labs/Results
Orders:
Orders
12/23/23 22:09
0.9% Sodium Chloride 1000 ml [Nss] 1,000 ml IV BOLUS
Ondansetron Injectable [Zofran] 4 mg IV NOW STA
12/23/23 22:38
Comprehensive Metabolic Panel Urgent
Magnesium Urgent
12/23/23 22:39
Beta HCG Quantitative Urgent
Is this a screen?: No
Comment: 28 weeks per pt
Complete Blood Count/With Diff Urgent
12/23/23 22:43
Drug Screen, Urine [Urine Drug Abuse Screen] Urgent
Date Specimen was Collected: 12/24/23
Time Specimen was Collected: 00:38
Urinalysis Reflex To Culture Urgent
Date Specimen was Collected: 12/24/23
Time Specimen was Collected: 00:38
12/23/23 23:09
Pantoprazole [Protonix IV] 40 mg IV NOW STA
12/23/23 23:39
0.9% Sodium Chloride 500 ml [Nss] 500 ml IV BOLUS
12/24/23 00:39
Fentanyl, Urine Urgent
Urine Microscopic Reflex Cult Urgent
Urine Culture Urgent
TIMUR Source: U
Specimen Description:
Date Specimen was Collected: 12/24/23
Time Specimen was Collected: 00:38
12/24/23 02:00
Dextrose 5%/0.9%Sodchl 500 ml [D5/0.9% Sodium Chloride] 500 ml IV 150 mls/hr
12/24/23 02:50
Prochlorperazine [Compazine] 10 mg IV NOW STA
12/24/23 02:51
Prochlorperazine [Compazine] [address] .[facility]-MED ONE
12/24/23 04:45
Urinalysis Reflex To Culture Urgent
Date Specimen was Collected: 12/24/23
Time Specimen was Collected: 04:44
Urine Microscopic Reflex Cult Urgent
Urine Culture Urgent
TIMUR Source: U
Specimen Description:
Date Specimen was Collected: 12/24/23
Time Specimen was Collected: 04:44
12/24/23 05:39
Cephalexin Monohydrate [Keflex] 500 mg PO NOW STA
Abnormal Lab Results
12/23/23 12/23/23 12/24/23
22:38 22:39 00:39
WBC 15.8 H 10^3/uL
(4.8-10.8)
Hct 35.5 L %
(37.0-47.0)
Plt Count 614 H 10^3/uL
(130-400)
Abs Immat Gran (auto) 0.1 H 10^3/uL
(0-0.05)
Absolute Neuts (auto) 12.9 H 10^3/uL
(1.4-6.5)
Absolute Monos (auto) 0.8 H 10^3/uL
(0.1-0.6)
Neutrophils % 81.6 H %
(42.2-75.2)
Lymphocytes % 13.0 L %
(20.5-51.1)
Sodium 131 L mmol/L
(135-145)
Chloride 88 L mmol/L
(98-107)
Carbon Dioxide 33 H mmol/L
(22-30)
BUN 19 H mg/dl
(7-17)
Creatinine 0.5 L mg/dL
(0.6-1.0)
Alkaline Phosphatase 152 H U/L
(38-126)
Urine Ketones 3+ A
(Negative)
Urine Bilirubin 1+ A
(Negative)
Urine Urobilinogen 2+ A
(Neg - 1+)
Leukocyte Esterase Rfl Trace A
(Negative)
Urine WBC (Reflex) 11-15 A /HPF
(0-5)
Urine Bacteria (Reflex) Many A
(Negative)
Urine Methadone Screen Positive H
(Negative)
Urine Fentanyl Screen Positive H
(Negative)
12/24/23
04:45
WBC
Hct
Plt Count
Abs Immat Gran (auto)
Absolute Neuts (auto)
Absolute Monos (auto)
Neutrophils %
Lymphocytes %
Sodium
Chloride
Carbon Dioxide
BUN
Creatinine
Alkaline Phosphatase
Urine Ketones 3+ A
(Negative)
Urine Bilirubin 2+ A
(Negative)
Urine Urobilinogen 2+ A
(Neg - 1+)
Leukocyte Esterase Rfl Trace A
(Negative)
Urine WBC (Reflex) 11-15 A /HPF
(0-5)
Urine Bacteria (Reflex) Many A
(Negative)
Urine Methadone Screen
Urine Fentanyl Screen
12/23/23 22:39
12/23/23 22:38
Vital Signs
Initial and Last Documented VS:
Initial Vital Signs
Temp Pulse Resp BP Pulse Ox
97.9 F 108 18 142/98 96
12/23/23 20:57 12/23/23 20:57 12/23/23 20:57 12/23/23 20:57 12/23/23 20:57
Last Documented Vital Signs
Temp Pulse Resp BP Pulse Ox
97.9 F 84 18 155/92 98
12/23/23 20:57 12/24/23 06:05 12/24/23 06:05 12/24/23 05:48 12/24/23 06:05
<ANGELO Brown - Last Filed: 12/24/23 04:12>
MDM/Problems Addressed
Differential Diagnosis Includes:
hyperemesis gravidarum, preeclampsia, HELLP syndrome
MDM/Problems Addressed:
38 year old female who presents with 2 days of nausea and vomiting.
Chronic conditions affecting care: Other (IVDU)
<ANGELO Brown - Last Filed: 12/24/23 04:12>
*Critical Care Note
Total Time (30-74mins, 75-104mins- exclusive of procedures): Not Applicable
ED Attending Note
<ANGELO Brown - Last Filed: 12/24/23 04:12>
-
Portions of this chart may have been created with voice recognition software.� Occasional wrong word or��sound alike� substitutions may have occurred due to the inherent limitations of voice recognition software.
<Payam Greenberg MD - Last Filed: 12/26/23 19:07>
ED Attending Note
Patient seen and examined by attending physician: Yes
ED Attending Note:
Pt, , who is approximately 28 weeks , presents to ED secondary to persistent nausea and vomiting over the past 2 days. Denies fever or chills. Denies sore throat. Denies coughing. Denies diarrhea. Denies trauma. Denies sore throat.
Denies nasal congestion. Denies headache. Denies dizziness. Patient does admit to having used fentanyl recently. Patient is on chronic methadone treatment. Denies drinking alcohol. Patient was admitted to the hospital 1 month ago for
continual vomiting. Patient has an appointment with her COMPRESSION MOLDING MACHINE TENDER physician at [facility] tomorrow afternoon, at which point an ultrasound will be scheduled. Patient does feel the baby move.
Physical Exam
General: no apparent distress, not acutely ill. afebrile.
Head: nc/at. eomi
Neck: supple. no meningeal signs.
Heart: tachycardic, no murmur. equal radial pulses.
Lungs: no acute respiratory distress. clear bilaterally
Abdomen: normal bowel sounds. not tender.
Neuro: alert and oriented. no focal neurological deficits
Skin: multiple skin lesions in different healing stages noted with iv track shannon over b/l arms. no active drainage noted.
Psychiatric: well kept. interactive and cooperative
Extremities: no edema. no calf tenderness.
Pt and family report that skin lesions are improving and currently and is being followed by PCP.
Pt reports sig. improvement in symptoms after treatment, without any further vomiting episodes. In light of 3+ ketones, patient will be provided with further hydration with D5NS and reassessed.
UA noted - likely contaminant but in light of her symptoms, will start Keflex. Pt will be discharged home in stable condition, to the care of her family, with recommendation to f/u with medical technologist hematology physician later today. At that time, will discuss with
her medical technologist hematology physician about whether or not to continue abx.
Discharge Plan
Departure
Patient Disposition: Home (Routine Discharge)
Date of Disposition: 12/24/23
Time of Disposition: 05:45
Patient with high blood pressure during this ER visit?: Yes
Condition: Good
Discharge Problem:
Nausea & vomiting, UTI (urinary tract infection)
Instructions: Urinary Tract Infection, Adult ED, Nausea and Vomiting, Adult ED
Prescriptions:
New
cephalexin 500 mg capsule
500 mg PO Q8H Qty: 14 0RF
No Action
methadone 10 mg/mL Concentrate
120 mg PO DAILY@0500
Patient Comments:
dose confirmation with [facility]
methadone 10 mg/mL Concentrate
135 mg PO DAILY@1130
Patient Comments:
dose confirmation with [facility]
dexmethylphenidate 10 mg Tablet
10 mg PO DAILY@1300
Patient Comments:
05/21/2023, patient filled this medication on 04/27/2023 for 30 tablets according to PDMP.
dexmethylphenidate 20 mg Capsule,Er Biphasic 50-50
20 mg PO DAILY
Patient Comments:
05/21/2023, patient filled this medication on 05/17/2023 for 30 capsules according to PDMP.
mupirocin 2 % Ointment
1 applic topical DAILY Qty: 22 1RF
tizanidine 2 mg Tablet
2 mg PO Q4HPRN PRN (Reason: restlessness,agitation,anxiety) Qty: 20 0RF
ondansetron HCl 4 mg tablet
4 mg PO Q8H PRN (Reason: nausea and vomiting) 4 Days Qty: 10 0RF
Referrals:
UNKNOWN - PT DOES,NOT KNOW [Family Provider] -
Activity Restrictions/Additional Instructions:
As discussed, please follow up with your medical technologist hematology physician later today for further evaluation and treatment.
Interventions
Interventions:
*Risk Screen - Suicide Last Done: 12/23/23 22:51
*General Assessment Last Done: 12/23/23 22:51
*Neglect/Abuse Screening Last Done: 12/23/23 22:51
ED- Fall Risk Assessment Last Done: 12/23/23 22:55
*ED COVID-19 Vaccine History Last Done: 12/23/23 22:51
*Nursing Disposition Last Done: 12/24/23 06:05
ED-Female Genitourinary Assessment Last Done: 12/23/23 22:55
Discharge Date and Time
Discharge Date/Time: 12/24/23 06:09
Print Language: CENTRAL AFRICAN
[2023-12-23] MEDS: NSS 1000 IV (22:38)
[2023-12-23 22:40] VITALS: BP 150/97
[2023-12-23 22:58] LABS: % Basophils 0.1 % (0-2); % Eosinophils 0.1 % (0-6); % Immature Granulocytes 0.4 % (0-0.5); % Monocytes 4.8 % (1.7-9.3); % Neutrophils 81.6 % (42.2-75.2); Absolute Immature Granulocytes 0.1 10^3/uL (0-0.05); Absolute Lymphocytes 2.1 10^3/uL (1.2-3.4); Absolute Monocytes 0.8 10^3/uL (0.1-0.6); Absolute Neutrophils 12.9 10^3/uL (1.4-6.5); Hematocrit 35.5 % (37.0-47.0); Hemoglobin 12.8 g/dL (12.0-16.0); Mean Corp Hgb Conc. 36.1 g/dL (33.0-37.0); Mean Corpuscular Hgb 30.5 pg (27.0-31.0); Mean Corpuscular Volume 84.5 fL (81.0-99.0); Mean Platelet Volume 9.1 fL (7.4-10.4); Nucleated Red Blood Cells % 0 %; Red Cell Dist. Width 12.5 % (11.5-14.5); White Blood Cell Count 15.8 10^3/uL (4.8-10.8)
[2023-12-23 23:13] LABS: ALT (SGPT) 19 U/L (0-35); AST (SGOT) 33 U/L (14-36); Albumin 3.5 g/dl (3.5-5.0); Alkaline Phosphatase 152 U/L (38-126); Blood Urea Nitrogen 19 mg/dl (7-17); Calcium 9.1 mg/dl (8.4-10.2); Carbon Dioxide 33 mmol/L (22-30); Chloride 88 mmol/L (98-107); Glucose 95 mg/dl (70-99); Magnesium 2.2 mg/dl (1.6-2.3); Potassium 3.6 mmol/L (3.5-5.1); Sodium 131 mmol/L (135-145); Total Protein 7.1 g/dl (6.3-8.2); eGFR > 60.00
[2023-12-23] MEDS: PROTONIX IV 40 MG IV (23:17)
[2023-12-23 23:24] LABS: Platelet Count 614 10^3/uL (130-400)
[2023-12-23] MEDS: NSS 500 IV (23:47)
[2023-12-24 00:40] VITALS: BP 161/87
[2023-12-24 00:49] LABS: Urine Albumin Trace (Neg - Trace); Urine Bilirubin 1+ (Negative); Urine Character Slightly Cloudy (Clear); Urine Color Amber; Urine Glucose Negative (Negative); Urine Ketone 3+ (Negative); Urine Leukocyte Trace (Negative); Urine Nitrite Negative (Negative); Urine Occult Blood Negative (Negative); Urine Urobilinogen 2+ (Neg - 1+)
[2023-12-24 01:00] VITALS: BP 163/92
[2023-12-24] MEDS: D5/0.9% SODIUM CHLORIDE 500 IV (01:08)
[2023-12-24 01:15] LABS: Urine Amorphous Seen; Urine Bacteria Many (Negative); Urine Mucus Many; Urine Squamous Cell >30 /LPF (Few)
[2023-12-24 01:16] LABS: Urine Red Blood Cell 0-2 /HPF (0-2); Urine Urothelial Cell >30 /LPF (FEW)
[2023-12-24 01:20] LABS: Amphetamines Negative (Negative); Barbiturates Negative (Negative); Benzodiazepines Negative (Negative); Buprenorphine Negative (Negative); Cocaine Negative (Negative); Marijuana Negative (Negative); Methadone Positive (Negative); Methamphetamines Negative (Negative); Opiates Negative (Negative); Phencyclidine Negative (Negative); Tricyclic Antidepressants Negative (Negative)
[2023-12-24 01:50] LABS: Fentanyl, Urine Positive (Negative)
[2023-12-24 02:00] VITALS: BP 155/87
[2023-12-24] MEDS: COMPAZINE 10 MG IV (02:53)
[2023-12-24 03:00] VITALS: BP 151/87
[2023-12-24 04:00] VITALS: BP 152/82
--- NOTE | 2023-12-24 04:05 | EDRN ---
Heart tones 135-140. Dr. Greenberg informed.
[2023-12-24 04:51] LABS: Urine Albumin Trace (Neg - Trace); Urine Bilirubin 2+ (Negative); Urine Character Clear (Clear); Urine Color Amber; Urine Glucose Negative (Negative); Urine Ketone 3+ (Negative); Urine Leukocyte Trace (Negative); Urine Nitrite Negative (Negative); Urine Occult Blood Negative (Negative); Urine Urobilinogen 2+ (Neg - 1+)
[2023-12-24 05:20] LABS: Urine Amorphous Seen; Urine Mucus Moderate; Urine Squamous Cell >30 /LPF (Few)
[2023-12-24 05:29] LABS: Urine Red Blood Cell 0-2 /HPF (0-2); Urine Urothelial Cell 16-20 /LPF (FEW)
[2023-12-24 05:31] LABS: Urine Bacteria Many (Negative)
[2023-12-24] MEDS: D5/0.9% SODIUM CHLORIDE IV (05:46)
[2023-12-24] MEDS: KEFLEX 500 MG PO (05:47)
[2023-12-24 05:48] VITALS: BP 155/92
== END 2023-12-24 06:09 | disposition home or self-care (01) ==
LOC: EMR 20:50
PROVIDERS: EMERGENCY PHYSICIAN Emergency Medicine
DX: O26.893 Other specified pregnancy related conditions, third trimester (principal); Z3A.28 28 weeks gestation of pregnancy; N39.0 Urinary tract infection, site not specified; R11.2 Nausea with vomiting, unspecified; R10.13 Epigastric pain; R51.9 Headache, unspecified; R03.0 Elevated blood-pressure reading, without diagnosis of hypertension; L98.9 Disorder of the skin and subcutaneous tissue, unspecified; F15.20 Other stimulant dependence, uncomplicated; F90.9 Attention-deficit hyperactivity disorder, unspecified type; O24.913 Unspecified diabetes mellitus in pregnancy, third trimester; F17.200 Nicotine dependence, unspecified, uncomplicated; Z79.891 Long term (current) use of opiate analgesic; Z88.2 Allergy status to sulfonamides
CPT/HCPCS: 99284; 96374; 96375 ×2; 96361 ×5; 80053; 80306; 80307; 81003; 81015; 83735; 84702; 85025; 87086

== ENCOUNTER 2024-01-17 08:43 | Emergency (ER) | payer OTHER, SELFPAY ==
[2024-01-17 08:50] VITALS: BP 177/99
--- NOTE | 2024-01-17 09:19 | ED.GENMED ---
History of Present Illness
General
Chief Complaint: Skin Problem
Source: patient
Exam Limitations: none
Time Seen by Provider: 01/17/24 08:57
History of Present Illness
History of Present Illness:
38-year-old female with known history of MRSA abscesses. Also has had recurrent nausea vomiting issue through . She is a G5, P1. She 31 weeks . She is followed high risk and [facility]. She comes in complaining of an abscess deep
to the left buttock and onset of nausea vomiting that started this morning. She currently does not use IV drugs. She stopped 4 months ago. She is on methadone 130 mg in the morning 135 in the afternoon. She was unable to take this morning's
dose. No fever or chills.
Past History
Past History
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
ED Past Surgical History: Gynecological (D&C)
Social History
Tobacco: Smoker
Alcohol: None
Drug: Former user
Personal:
Living: with family
Employment: Not employed
Family History
Family History: Other (Noncontributory)
Review of Systems
Review of Systems
All Other Systems: Not applicable
Constitutional: Denies fever or chills
ABD/GI: Denies abdominal pain
: Reports no symptoms
Phy Exam
Physical Exam
Physical Exam:
GENERAL: Alert and oriented. Currently dry heaving at times
EYE: Orbits normal.
NECK: Supple
CARDIAC: Regular rate and rhythm without any obvious murmurs.
LUNGS: Clear breath sounds,normal
ABDOMEN: Soft, 30+ weeks by size. Nontender.
NEUROLOGICAL: Alert and oriented , grossly non-focal
SKIN: Warm and dry, multiple large potholes open ulcers to the extremities. Deep abscess to the left buttock approximately 20 cm round with induration and tenderness. Some fluctuance.
MUSCULOSKELETAL: Chronic appearing lower extremity edema
PSYCH: Normal and appropriate interaction.
Course
Orders/Labs/Results
Orders:
Orders
01/17/24 09:06
IV Insert/Care/Rem.- Treatment PRN
0.9% Sodium Chloride 1000 ml [Nss] 1,000 ml IV BOLUS
Ondansetron HCl [Zofran] 4 mg PO NOW STA
01/17/24 09:14
EKG [Electrocardiogram (*1)] Urgent
Reason for Study: QTc Monitoring
01/17/24 09:15
EKG- Treatment ONCE
01/17/24 09:30
Promethazine [Phenergan] 25 mg IM NOW STA
01/17/24 09:39
Consult Infectious Disease [INFECTIOUS DISEASE CONSULT] Urgent
Consulting Provider: Aneta Julian
Was physician already notified: Yes
01/17/24 09:45
Heart Tones ONCE
01/17/24 10:00
Complete Blood Count/With Diff Urgent
Comprehensive Metabolic Panel Urgent
Lipase Urgent
Blood Culture Urgent
TIMUR Source: Blood/Venous
Specimen Description:
01/17/24 10:09
Ondansetron Injectable [Zofran] 4 mg IV NOW STA
01/17/24 10:34
Blood Culture Stat
TIMUR Source: Blood/Venous
Specimen Description:
01/17/24 10:39
Add On- LAB Stat
Tests Added?: CMP should be stat
01/17/24 10:40
Add On- LAB Urgent
Tests Added?: lipase
01/17/24 10:45
Diphenhydramine [Benadryl] 25 mg IV NOW STA
Prochlorperazine [Compazine] 5 mg IV NOW STA
01/17/24 11:[address] Non Medication Order As Directed
Physician Order: given imminent transfer, start vancomycin now and get second blood culture when feasible
Above order entered?: Yes
01/17/24 11:06
Warm Compress [Heat Application] As Directed
Apply warm compress to (location):: buttocks abscess, abd abscess
Compress Frequency:: Intermittent q4h
Duration of Application: No longer than 30 minutes
01/17/24 11:13
Miscellaneous Order As Directed
Miscellaneous order: given imminent transfer, start vancomycin now and get second blood culture when feasible
01/17/24 11:15
Vancomycin [Vancocin] 1,750 mg 0.9% Sodium Chloride 500 ml [Nss] 500 ml IV ONCE
01/17/24 12:00
VANCOMYCIN Pharmacy to Dose [VANCOCIN Pharmacy to Dose] 1 each Pharmacy To Prepare [Call Pharmacy To Prepare] 0 ml IV PER PROTOCOL
Abnormal Lab Results
01/17/24
10:00
WBC 13.6 H 10^3/uL
(4.8-10.8)
RBC 3.38 L 10^6/uL
(4.20-5.40)
Hgb 10.2 L g/dL
(12.0-16.0)
Hct 30.2 L %
(37.0-47.0)
Plt Count 548 H 10^3/uL
(130-400)
Abs Immat Gran (auto) 0.1 H 10^3/uL
(0-0.05)
Absolute Neuts (auto) 12.3 H 10^3/uL
(1.4-6.5)
Absolute Lymphs (auto) 0.8 L 10^3/uL
(1.2-3.4)
Immature Gran % 0.6 H %
(0-0.5)
Neutrophils % 90.2 H %
(42.2-75.2)
Lymphocytes % 5.7 L %
(20.5-51.1)
Sodium 134 L mmol/L
(135-145)
Creatinine 0.5 L mg/dL
(0.6-1.0)
Alkaline Phosphatase 154 H U/L
(38-126)
Total Protein 5.8 L g/dl
(6.3-8.2)
Albumin 2.9 L g/dl
(3.5-5.0)
01/17/24 10:00
01/17/24 10:00
Vital Signs
Initial and Last Documented VS:
Initial Vital Signs
Temp Pulse Resp BP Pulse Ox
98 F 91 18 177/99 100
01/17/24 08:50 01/17/24 08:50 01/17/24 08:50 01/17/24 08:50 01/17/24 08:50
Last Documented Vital Signs
Temp Pulse Resp BP Pulse Ox
98 F 77 16 168/99 99
01/17/24 08:50 01/17/24 11:08 01/17/24 11:08 01/17/24 11:08 01/17/24 10:43
MDM/Problems Addressed
Differential Diagnosis Includes:
Multiple issues including a deep abscess. This will likely require surgical drainage. However given the size and clinical deepness will defer this to surgery further evaluation. This will possibly be done after transfer. I would like to start IV
antibiotics. I have contacted infectious disease to have their input as far as and the antibiotic choices. Initially IV access of course is an issue. IV team is in trying to get IV access. Discussed with obstetrics also. No need for monitoring
at this time given no obstetrical symptoms. However I also will contact the high risk [place] team.
*Pulse Oximetry
Patient hypoxic: no
*EKG
Interpreted by ED Provider?: Yes
Interpretation: normal
Comparison EKG: no changes
Heart Rate: 86
Rate: normal
Rhythm: sinus
[place]: normal axis
QRS Pattern: normal QRS
Ischemia: no ischemia
*Loss Control Representative Interpretation
Rate: normal
Interpretation: normal
Heart Rate: 96
Rhythm: sinus
*Critical Care Note
Total Time (30-74mins, 75-104mins- exclusive of procedures): 50
Data Reviewed
Review of Other/Old Records Reveals: Labs, Records and Testing
Update Note
Update Note:
Patient accepted at [facility]. Dr. Sue. Patient agrees. Significant other agrees. Awaiting transfer.
1045.... Awaiting infectious disease input. Would like to give her a dose of antibiotics prior to transfer if reasonable. Vancomycin was ordered. 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 This was made aware to infectious disease. Also
blood pressures are elevated although they have been elevated previously. Urine ordered for protein.
1104... Seen by infectious disease. Vancomycin will be started slowly. Blood pressure remains elevated but her significant other states this is usually the issue when she has nausea vomiting. We will give her Compazine and Benadryl reevaluate
blood pressure closely.
1112.... Last blood pressure 168/99. Heart rate 93. She is resting comfortably. Await transfer. We will contact high risk to see if they want us to give anything for the blood pressure or hold off till she has sent
Just prior to transfer I contacted and talked to the high risk office machine mechanic. Agreed with holding on emergent treatment for her blood pressure they will follow-up closely when she is there.
Critical care 50 minutes
ED Attending Note
-
Portions of this chart may have been created with voice recognition software.� Occasional wrong word or��sound alike� substitutions may have occurred due to the inherent limitations of voice recognition software.
Discharge Plan
Departure
Patient Disposition: Acute [facility]
Date of Disposition: 01/17/24
Time of Disposition: 10:27
Discharge Problem:
Left buttock cellulitis/abscess, Recurrent vomiting, 31-week , High risk
Prescriptions:
No Action
methadone 10 mg/mL Concentrate
120 mg PO DAILY@0500
Patient Comments:
dose confirmation with [facility]
methadone 10 mg/mL Concentrate
135 mg PO DAILY@1130
Patient Comments:
dose confirmation with [facility]
dexmethylphenidate 10 mg Tablet
10 mg PO DAILY@1300
Patient Comments:
05/21/2023, patient filled this medication on 04/27/2023 for 30 tablets according to PDMP.
dexmethylphenidate 20 mg Capsule,Er Biphasic 50-50
20 mg PO DAILY
Patient Comments:
05/21/2023, patient filled this medication on 05/17/2023 for 30 capsules according to PDMP.
ondansetron HCl 4 mg tablet
4 mg PO Q8H PRN (Reason: nausea and vomiting) 4 Days Qty: 10 0RF
mupirocin 2 % ointment
1 applic topical DAILY
Referrals:
UNKNOWN - PT DOES,NOT KNOW [Family Provider] -
Hospital Transfer
Other hospital: [facility]
I certify that the patient requires transfer: Yes
Discussed case with accepting physician: Vikram
Reason for transfer: higher level of care
Interventions
Interventions:
*Risk Screen - Suicide Last Done: 01/17/24 08:50
*General Assessment Last Done: 01/17/24 08:50
*Neglect/Abuse Screening Last Done: 01/17/24 08:50
ED- Fall Risk Assessment Last Done: 01/17/24 11:45
*ED COVID-19 Vaccine History Last Done: 01/17/24 09:00
*Nursing Disposition Last Done: 01/17/24 11:45
ED-Skin Assessment Last Done: 01/17/24 09:16
Discharge Date and Time
Discharge Date/Time: 01/17/24 11:45
Print Language: SERBIAN
[2024-01-17] MEDS: NSS 1000 IV (10:12)
[2024-01-17] MEDS: ZOFRAN 4 MG IV (10:12)
[2024-01-17 10:17] VITALS: BP 177/98
[2024-01-17 10:23] LABS: % Basophils 0.2 % (0-2); % Eosinophils 0.3 % (0-6); % Immature Granulocytes 0.6 % (0-0.5); % Lymphocytes 5.7 % (20.5-51.1); % Neutrophils 90.2 % (42.2-75.2); Absolute Immature Granulocytes 0.1 10^3/uL (0-0.05); Absolute Lymphocytes 0.8 10^3/uL (1.2-3.4); Absolute Monocytes 0.4 10^3/uL (0.1-0.6); Absolute Neutrophils 12.3 10^3/uL (1.4-6.5); Hematocrit 30.2 % (37.0-47.0); Hemoglobin 10.2 g/dL (12.0-16.0); Mean Corp Hgb Conc. 33.8 g/dL (33.0-37.0); Mean Corpuscular Hgb 30.2 pg (27.0-31.0); Mean Corpuscular Volume 89.3 fL (81.0-99.0); Nucleated Red Blood Cells % 0 %; Red Blood Cell Count 3.38 10^6/uL (4.20-5.40); Red Cell Dist. Width 12.9 % (11.5-14.5); White Blood Cell Count 13.6 10^3/uL (4.8-10.8)
--- NOTE | 2024-01-17 10:31 | CON.ID ---
Consultation
-
Date/Time Consultation Requested: 01/17/24 I was told order placed at 10:30AM on [facility]
Date/Time Consultation Performed: 01/17/24 10:32
Requesting Provider: Dr Garzon
Performing Provider: Dr Julian
Reason for Consultation: 'hx of mrsa. may old skin potholes. but large deep abscess of left...
Chief Complaint / Past History
Chief Complaint
Swelling, redness, pain of the right buttock
History of Present Illness
Ms Olson is a 38 year old female , 31 weeks following for high risk at [facility]. Not currently using IVDU, last use 4 months ago, has been on methadone x13 years. complicated by recurrent nausea, vomiting.
Today presented here for left buttock pain. No fevers or chills. She has nonhealing small, circular wounds across her entire body, significant other shares these have been present for about 1 year. There is a ~3x3 cm fluctuant, raised lesion
Since arrival here she has been afebrile, bp 150-170s systolic, pulse 80s-100s, wbc 13.6, hgb 10.2, plt pending, her cr is 0.5, t bill 0.5, ast 17, alt 11, alk phos 154, one blood culture in progress.
She is pending imminent transfer to the treating MDs at [facility].
Past History
Additional Past Medical History:
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
Additional Past Surgical History:
Gynecological (D&C)
Allergy History:
Sulfa (Sulfonamide Antibiotics) Allergy (Verified 01/17/24 08:49)
Anaphylaxis
Medications Reviewed: Yes
Social History
Tobacco: Smoker
Alcohol: None
Drug: Former User
Family History
Family History: Not Pertinent
Review of Systems
Review of Systems
General: Chills; Negative Fever
All systems: All other systems were reviewed and were negative
Vital Signs
Temp Pulse Resp BP Pulse Ox
98 F 91 18 177/99 100
01/17/24 08:50 01/17/24 08:50 01/17/24 08:50 01/17/24 08:50 01/17/24 08:50
Physical Exam
Physical Exam
Constitutional: Acutely Ill
Cardiovascular: Regular Rate and S1/S2; Negative Murmur or Rub
Pulmonary: Clear and Symmetric; Negative Wheezes, Rales or Rhonchi
Gastrointestinal: Soft, Non Tender, Non Distended and Normal Bowel Sounds
Skin: Warm and Dry; Negative Rash or Jaundice
Wound: Other (extensive wounds in various stages of healing across the extremities and abdomen. two fluctuant abscesses with erythema, warmth, tenderness (abd and gluteus) other lesions with surrounding erythema)
Lab / Diagnostic Study Results
01/17/24 10:00
Abs Immat Gran (auto) 0.1 10^3/uL (0-0.05) H 01/17/24 10:00
Absolute Neuts (auto) 12.3 10^3/uL (1.4-6.5) H 01/17/24 10:00
Absolute Lymphs (auto) 0.8 10^3/uL (1.2-3.4) L 01/17/24 10:00
Absolute Monos (auto) 0.4 10^3/uL (0.1-0.6) 01/17/24 10:00
Absolute Basos (auto) 0.0 10^3/uL (0-0.2) 01/17/24 10:00
Immature Gran % 0.6 % (0-0.5) H 01/17/24 10:00
Neutrophils % 90.2 % (42.2-75.2) H 01/17/24 10:00
Lymphocytes % 5.7 % (20.5-51.1) L 01/17/24 10:00
Monocytes % 3.0 % (1.7-9.3) 01/17/24 10:00
Eosinophils % 0.3 % (0-6) 01/17/24 10:00
Basophils % 0.2 % (0-2) 01/17/24 10:00
Microbiology Results
Micro:
01/17/24 10:00 Blood Culture - Pending
Blood/Venous
Assessment / Plan
Gluteal abscess, abdominal wall abscess
H/o MRSA abscesses
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
H/o IVDU - currently in remission
- second blood culture ordered stat
- CMP is ordered for stat - discussed with lab verbally as well
- discussed vancomycin dose with clinical pharmacy will base off of cmp from one month ago which was normal - vanc 1.75 gm IV now
- warm compresses on the fluctuant lesions on the right upper abdomen and L buttocks which may help with spontaneous suppuration
- outpatient wound care follow up suggested
- may benefit from I&D of L gluteus and superficial right abdminal wall. Transfer is imminent - defer to receiving hospital
For imminent transfer to [facility]; further care will be per accepting MDs
Care Review
Plan reviewed with: Physician (Dr Garzon - antibiotics)
[2024-01-17 10:42] LABS: ALT (SGPT) 11 U/L (0-35); AST (SGOT) 17 U/L (14-36); Albumin 2.9 g/dl (3.5-5.0); Alkaline Phosphatase 154 U/L (38-126); Blood Urea Nitrogen 13 mg/dl (7-17); Calcium 8.7 mg/dl (8.4-10.2); Carbon Dioxide 24 mmol/L (22-30); Chloride 105 mmol/L (98-107); Estimated Creatinine Clearance > 125 ml/min; Glucose 91 mg/dl (70-99); Potassium 4.3 mmol/L (3.5-5.1); Sodium 134 mmol/L (135-145); Total Bilirubin 0.5 mg/dl (0.2-1.3); Total Protein 5.8 g/dl (6.3-8.2); eGFR > 60.00
[2024-01-17] MEDS: BENADRYL 25 MG IV (10:49)
[2024-01-17] MEDS: COMPAZINE 5 MG IV (10:50)
[2024-01-17 10:55] LABS: Mean Platelet Volume 9.5 fL (7.4-10.4); Platelet Count 548 10^3/uL (130-400)
[2024-01-17 11:00] VITALS: BP 158/113
[2024-01-17 11:06] VITALS: BP 143/105
[2024-01-17 11:08] VITALS: BP 168/99
[2024-01-17 11:16] LABS: Lipase 31 U/L (23-300)
[2024-01-17] MEDS: VANCOCIN 535 MG IV (11:33)
== END 2024-01-17 11:45 | disposition short-term general hospital (02) ==
LOC: EMR 08:43
PROVIDERS: CONSULT PHYSICIAN Student in an Organized Health Care Education/Training Program; EMERGENCY PHYSICIAN Emergency Medicine
DX: O26.893 Other specified pregnancy related conditions, third trimester (principal); L03.317 Cellulitis of buttock; L02.31 Cutaneous abscess of buttock; O21.9 Vomiting of pregnancy, unspecified; Z3A.31 31 weeks gestation of pregnancy
CPT/HCPCS: 99291; 96374; 96375 ×3; 96361; 80053; 85025; 87040; 93005

== ENCOUNTER 2024-11-11 06:01 | Emergency (ER) | payer OTHER, SELFPAY ==
[2024-11-11] VITALS (16 sets, daily range): BP systolic 81–142; BP diastolic 43–130; PULSE 43–46
--- NOTE | 2024-11-11 06:44 | EDRN ---
unable to place PIV, IV team notified and IV team is coming down to ED
--- NOTE | 2024-11-11 06:50 | ED.GENMED ---
History of Present Illness
General
Chief Complaint: Facial Problem
Source: patient
Exam Limitations: none
Time Seen by Provider: 11/11/24 06:28
Nursing documentation reviewed up to this point in time: agreed with
History of Present Illness
History of Present Illness:
Patient presents to ED after waking up this morning secondary to dizziness, visual hallucination, along with right facial, and right arm numbness. Of note, patient states that she has had ongoing headache for the past 1 week. Denies blurred
vision. Denies weakness. Denies difficulty with speech. Denies difficulty swallowing. Denies recent illness. Denies fever or chills. Denies recent change in medications or diet. Denies family history of headache. However, since developing
preeclampsia during her most recent last year, patient has had difficult time controlling her blood pressure despite taking Procardia along with intermittent headache, which has become more frequent over the past 1 month. Hallucination,
described as 'seeing preschool drawings, squiggly lines' on the wall. Patient states that this also has happened previously.
Past History
Past History
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
ED Past Surgical History: Gynecological (D&C)
Social History
Tobacco: Smoker
Alcohol: None
Drug: Former user
Personal:
Living: with family
Employment: Not employed
Family History
Family History: Other (Noncontributory)
Review of Systems
Review of Systems
Allergies reviewed?: Yes
All Other Systems: ROS reviewed and negative except as documented in HPI and ROS
Constitutional: Reports no symptoms; Denies fever
Respiratory: Reports no symptoms; Denies cough
Cardiac: Reports no symptoms; Denies palpitations
ABD/GI: Reports no symptoms; Denies vomiting
: Reports no symptoms
Musculoskeletal: Reports no symptoms
Skin: Reports no symptoms
Neurological: Reports headache, numbness and other (Visual hallucination)
Phy Exam
Physical Exam
Physical Exam:
Physical Exam
General: mild distress, not acutely ill. afebrile.
Head: nc/at. eomi
Neck: supple. no meningeal signs.
Heart: s1/s2 regular rate and rhythm, no murmur.
Lungs: no acute respiratory distress. clear bilaterally
Abdomen: normal bowel sounds. not tender.
Neuro: alert and oriented x 3. no focal weakness. decreased sensation noted over right face/RUE/RLE. normal speech. normal gait
Skin: no rash
Psychiatric: well kept. interactive and cooperative
Extremities: no edema. no calf tenderness.
Course
Orders/Labs/Results
Orders:
Orders
11/11/24 06:39
Test Result ONCE
11/11/24 06:40
CT Head W/o Iv Contrast Urgent
Comment:
Reason For Exam: right sided numbness
Diphenhydramine [Benadryl] 12.5 mg IV NOW STA
Ketorolac [Toradol] 15 mg IV NOW STA
Metoclopramide [Reglan] 10 mg IV NOW STA
11/11/24 06:41
Electrocardiogram (*1) Urgent
Reason for Study: QTc Monitoring
EKG- Treatment ONCE
Orthostatic VS- Treatment ONCE
0.9% Sodium Chloride 500 ml [Nss] 500 ml IV BOLUS
11/11/24 06:57
Urinalysis Reflex To Culture Urgent
Date Specimen was Collected: 11/11/24
Time Specimen was Collected: 06:43
Urine Microscopic Reflex Cult Urgent
Urine Culture Urgent
TIMUR Source: U
Specimen Description:
Date Specimen was Collected: 11/11/24
Time Specimen was Collected: 06:43
11/11/24 07:18
CBC/With ESR Urgent
CRP [C-Reactive Protein] Urgent
Comprehensive Metabolic Panel Urgent
HCG, Serum Qualitative Screen Urgent
Lyme Progressive Urgent
Magnesium Urgent
TSH Urgent
Abnormal Lab Results
11/11/24 11/11/24
06:57 07:18
RBC 3.94 L 10^6/uL
(4.20-5.40)
Hct 36.2 L %
(37.0-47.0)
MCH 32.0 H pg
(27.0-31.0)
Glucose 115 H mg/dl
(70-99)
C-Reactive Protein 28.00 H mg/L
(0.0-10.00)
Urine Bacteria (Reflex) Moderate A
(Negative)
Urine Albumin (Reflex) 1+ A
(Neg - Trace)
11/11/24 07:18
11/11/24 07:18
Vital Signs
Initial and Last Documented VS:
Initial Vital Signs
Pulse Resp BP Pulse Ox
55 18 94/49 98
11/11/24 06:05 11/11/24 06:05 11/11/24 06:05 11/11/24 06:05
Last Documented Vital Signs
Temp Pulse Resp BP Pulse Ox
98.5 F 82 16 97/56 99
11/11/24 10:31 11/11/24 11:22 11/11/24 11:22 11/11/24 11:22 11/11/24 11:22
MDM/Problems Addressed
MDM/Problems Addressed:
Pt with an unremarkable workup in ED, including blood work and CT head.
Pt also reports mild improvement in symptoms, and remains hemodynamically and neurologically intact during observation. Pt's presenting symptoms may be secondary to recent episodes of frequent headaches along with labile blood pressure. In ED,
although normotensive, pt found to be persistently bradycardic (40s - 50s), which may be secondary to outpatient medication, Procardia. At time of discharge, patient is able to ambulate independently with steady gait, without any symptoms, ie.
dizziness/sob/weakness.
Pt feels comfortable going home at this time. Will withhold Procardia, until re-evaluation w her PCP, including potential referral to neurology for outpatient consultation, due to frequent headache.
*Critical Care Note
Total Time (30-74mins, 75-104mins- exclusive of procedures): Not Applicable
ED Attending Note
-
Portions of this chart may have been created with voice recognition software.� Occasional wrong word or��sound alike� substitutions may have occurred due to the inherent limitations of voice recognition software.
Discharge Plan
Departure
Patient Disposition: Home (Routine Discharge)
Patient with high blood pressure during this ER visit?: No
Condition: Good
Discharge Problem:
Paresthesia, Bradycardia
Instructions: Bradycardia, Headaches in adults
Prescriptions:
No Action
methadone 10 mg/mL Concentrate
135 mg PO BID
Patient Comments:
dose confirmation with [facility]
ondansetron HCl 4 mg tablet
4 mg PO Q8H PRN (Reason: nausea and vomiting) 4 Days Qty: 10 0RF
mupirocin 2 % ointment
1 applic topical DAILY
nifedipine [Procardia] 20 mg Capsule
20 mg PO DAILY
Referrals:
Elizabeth Eng MD [Primary Care Provider] -
Activity Restrictions/Additional Instructions:
As discussed, please follow-up with your primary care physician for reevaluation, including potential consultation with neurology as an outpatient. Until then recommend withholding Procardia, as your heart rate has been noted to be low. Please
consider return to ED with worsening symptoms.
Interventions
Interventions:
*Risk Screen - Suicide Last Done: 11/11/24 06:05
*General Assessment Last Done: 11/11/24 06:05
*Neglect/Abuse Screening Last Done: 11/11/24 06:05
*ED- Fall Risk Assessment Last Done: 11/11/24 06:16
*ED COVID-19 Vaccine History Last Done: 11/11/24 06:05
*Nursing Disposition Last Done: 11/11/24 11:45
ED- Neurological Assessment Last Done: 11/11/24 10:31
ED-Skin Assessment Last Done: 11/11/24 10:31
Discharge Date and Time
Discharge Date/Time: 11/11/24 12:37
Print Language: COMORAN
[2024-11-11 07:14] LABS: Urine Albumin 1+ (Neg - Trace); Urine Bilirubin Negative (Negative); Urine Character Clear (Clear); Urine Color Yellow; Urine Glucose Negative (Negative); Urine Ketone Negative (Negative); Urine Leukocyte Negative (Negative); Urine Nitrite Negative (Negative); Urine Occult Blood Negative (Negative); Urine Specific Gravity 1.015 (<1.030); Urine Urobilinogen Negative (Neg - 1+)
[2024-11-11 07:35] LABS: % Basophils 0.3 % (0-2); % Eosinophils 0.8 % (0-6); % Immature Granulocytes 0.1 % (0-0.5); % Lymphocytes 35.3 % (20.5-51.1); % Monocytes 5.8 % (1.7-9.3); % Neutrophils 57.7 % (42.2-75.2); Absolute Eosinophils 0.1 10^3/uL (0-0.7); Absolute Lymphocytes 2.7 10^3/uL (1.2-3.4); Absolute Monocytes 0.4 10^3/uL (0.1-0.6); Absolute Neutrophils 4.4 10^3/uL (1.4-6.5); Hematocrit 36.2 % (37.0-47.0); Hemoglobin 12.6 g/dL (12.0-16.0); Mean Corp Hgb Conc. 34.8 g/dL (33.0-37.0); Mean Corpuscular Volume 91.9 fL (81.0-99.0); Mean Platelet Volume 9.8 fL (7.4-10.4); Nucleated Red Blood Cells % 0 %; Platelet Count 222 10^3/uL (130-400); Red Blood Cell Count 3.94 10^6/uL (4.20-5.40); Red Cell Dist. Width 11.8 % (11.5-14.5); White Blood Cell Count 7.6 10^3/uL (4.8-10.8)
[2024-11-11 07:45] LABS: HCG, Serum Qualitative Screen Negative
[2024-11-11 07:47] LABS: ALT (SGPT) 16 U/L (0-35); AST (SGOT) 22 U/L (14-36); Albumin 3.8 g/dl (3.5-5.0); Alkaline Phosphatase 58 U/L (38-126); Blood Urea Nitrogen 15 mg/dl (7-17); Calcium 9.4 mg/dl (8.4-10.2); Carbon Dioxide 23 mmol/L (22-30); Chloride 105 mmol/L (98-107); Estimated Creatinine Clearance 106 ml/min; Glucose 115 mg/dl (70-99); Magnesium 1.9 mg/dl (1.6-2.3); Potassium 4.4 mmol/L (3.5-5.1); Sodium 136 mmol/L (135-145); Total Bilirubin 0.8 mg/dl (0.2-1.3); Total Protein 6.3 g/dl (6.3-8.2); eGFR > 60.00
[2024-11-11] MEDS: BENADRYL 12.5 MG IV (07:47)
[2024-11-11] MEDS: NSS 500 IV (07:48)
[2024-11-11] MEDS: REGLAN 10 MG IV (07:48)
[2024-11-11] MEDS: TORADOL 15 MG IV (07:48)
[2024-11-11 07:54] LABS: Erythrocyte Sed Rate 9 mm/hour (0-20)
[2024-11-11 08:01] LABS: Urine Squamous Cell >30 /LPF (Few)
[2024-11-11 08:02] LABS: Urine Amorphous Seen
[2024-11-11 08:05] LABS: Urine Red Blood Cell 0-2 /HPF (0-2); Urine White Cell 0-2 /HPF (0-5)
[2024-11-11 08:10] LABS: Urine Bacteria Moderate (Negative)
[2024-11-11 13:23] LABS: Lyme Antibody Screen, EIA Negative (Negative)
== END 2024-11-11 12:37 | disposition home or self-care (01) ==
LOC: EMR 06:01
PROVIDERS: EMERGENCY PHYSICIAN Emergency Medicine; PRIMARYCARE PHYSICIAN Internal Medicine
DX: R20.2 Paresthesia of skin (principal); R00.1 Bradycardia, unspecified; E11.9 Type 2 diabetes mellitus without complications; F17.200 Nicotine dependence, unspecified, uncomplicated
CPT/HCPCS: 96374; 96375; 96361; 99284; 70450; 80053; 81003; 81015; 83735; 84443; 84703; 85025; 85652; 86140; 86618; 87077; 87086; 87147; 93005